=== PATIENT | male | born 1990 | race Caucasian/White ===

== ENCOUNTER 2018-01-27 | Emergency (ER) | END 2018-01-27 18:47 | disposition left against medical advice (07) | DX: R05 Cough (principal); Z53.21 Procedure and treatment not carried out due to patient leaving prior to being seen by health care provider ==

== ENCOUNTER 2018-01-27 22:55 | Emergency (ER) | payer OTHER ==
[2018-01-27 23:40] LABS: Amphetamine Screen,Urine Not Detected (NotDetected); Barbiturate Screen,Urine Not Detected (NotDetected); Benzodiazepines Screen,Urine Not Detected (NotDetected); Cocaine Screen,Urine Not Detected (NotDetected); Methadone Screen, Urine Not Detected (NotDetected); Opiate Screen,Urine Not Detected (NotDetected); Oxycodone Screen, Urine Not Detected (NotDetected); Phencyclidine Screen,Urine Not Detected (NotDetected); Tricyclic Antidepressant,Urine Not Detected (NotDetected); Urn Cannabinoid Scrn Not Detected (NotDetected)
--- NOTE | 2018-01-27 23:56 | ED ---
Psych HPI - General Chief Complaint: Psychiatric Symptoms Stated Complaint: Suicidal Time Seen by Provider: 01/27/18 23:06 Source: patient Mode of arrival: ambulatory - History of Present Illness Initial Comments: This patient is 28-year-old man who presents to be evaluated for some feelings of depression and concerns that he might use heroin again and overdose. The patient states that he had been using narcotics, but has been clean for number weeks now. Over the past few nights he has been having concerns that he might use heroin and might lead to overdosing. MD Complaint: feels depressed -: days(s) Associated Psychiatric Symptoms: depression History of same: No Quality: constant Improves With: none Worsens With: none Context: recent alcohol abuse Associated Symptoms: denies other symptoms Treatments Prior to Arrival: none - Related Data Allergies Allergy/AdvReac Type Severity Reaction Status Date / Time diphenhydramine Allergy Rash/Hives Verified 01/27/18 23:08 [From Benadryl] Penicillins Allergy Anaphylaxis Verified 01/27/18 17:14 Review of Systems ROS Statement: Those systems with pertinent positive or pertinent negative responses have been documented in the HPI. ROS Other: All systems not noted in ROS Statement are negative. Constitutional: Denies: fever Respiratory: Denies: cough, dyspnea Cardiovascular: Denies: chest pain, palpitations Gastrointestinal: Denies: abdominal pain, vomiting, diarrhea Musculoskeletal: Denies: back pain Neurological: Denies: headache, weakness, numbness Psychiatric: Reports: depression. Denies: auditory hallucinations, visual hallucinations, homicidal thoughts, suicidal thoughts Past Medical History Past Medical History: Asthma History of Any Multi-Drug Resistant Organisms: None Reported Past Surgical History: No Surgical Hx Reported Past Psychological History: No Psychological Hx Reported Smoking Status: Current some day smoker Past Alcohol Use History: None Reported Past Drug Use History: None Reported General Exam Limitations: no limitations General appearance: alert, in no apparent distress Head exam: Present: atraumatic, normocephalic Eye exam: Present: normal appearance. Absent: scleral icterus, conjunctival injection Respiratory exam: Present: normal lung sounds bilaterally. Absent: respiratory distress, wheezes, rales, rhonchi, stridor Cardiovascular Exam: Present: regular rate, normal rhythm, normal heart sounds. Absent: systolic murmur, diastolic murmur, rubs, gallop GI/Abdominal exam: Present: soft. Absent: distended, tenderness, guarding, rebound, mass Extremities exam: Present: normal inspection, normal capillary refill. Absent: pedal edema, calf tenderness Back exam: Present: normal inspection. Absent: CVA tenderness (R), CVA tenderness (L) Neurological exam: Present: alert Psychiatric exam: Present: depressed. Absent: agitated, anxious, flat affect, manic, homicidal ideation, suicidal ideation Skin exam: Present: warm, dry, intact, normal color. Absent: rash Course Vital Signs 01/27/18 23:05 Temperature 98.3 F Pulse Rate 88 Respiratory 16 Rate Blood Pressure 105/67 O2 Sat by Pulse 98 Oximetry Medical Decision Making - Lab Data Lab Results 01/27/18 Range/Units 23:25 Urine Opiates Screen Not Detected (NotDetected) Ur Oxycodone Screen Not Detected (NotDetected) Urine Methadone Screen Not Detected (NotDetected) Ur Propoxyphene Screen Not Detected (NotDetected) Ur Barbiturates Screen Not Detected (NotDetected) U Tricyclic Antidepress Not Detected (NotDetected) Ur Phencyclidine Scrn Not Detected (NotDetected) Ur Amphetamines Screen Not Detected (NotDetected) U Methamphetamines Scrn Not Detected (NotDetected) U Benzodiazepines Scrn Not Detected (NotDetected) Urine Cocaine Screen Not Detected (NotDetected) U Marijuana (THC) Screen Not Detected (NotDetected) Disposition Clinical Impression: Adjustment reaction Disposition: HOME SELF-CARE Condition: Good Instructions: Mood Disorders (ED) Is patient prescribed a controlled substance at d/c from ED?: No Referrals: None,Stated [Primary Care Provider] - 1-2 days Jeremy Cloud MD [STAFF PHYSICIAN] - 1-2 days
[2018-01-28 00:48] VITALS: BP 119/79; PULSE 77; RESP 18; TEMP 98
== END 2018-01-28 00:47 | disposition home or self-care (01) ==
LOC: EC 22:55
DX: F43.21 Adjustment disorder with depressed mood (principal); F17.200 Nicotine dependence, unspecified, uncomplicated; Z88.8 Allergy status to other drugs, medicaments and biological substances; Z88.0 Allergy status to penicillin
CPT/HCPCS: 80306; 82075; 99285

== ENCOUNTER 2019-04-12 23:52 | Emergency (ER) | payer OTHER ==
[2019-04-13] MEDS ORDERED: ALBUTEROL NEBULIZED 2.5 MG/3 ML INHALATION STA (00:07)
--- NOTE | 2019-04-13 01:31 | ED ---
URI HPI <Jessica Champagne - Last Filed: 04/13/19 02:01> - General Source: patient Mode of arrival: ambulatory Limitations: no limitations - History of Present Illness MD Complaint: cough, sore throat, nasal congestion -: days(s) Severity: moderate Quality: burning Consistency: constant Improves With: nothing Worsens With: nothing Associated Symptoms: fever, sore throat Treatments Prior to Arrival: none <Tony Sotomayor - Last Filed: 04/14/19 08:07> - General Chief Complaint: Upper Respiratory Infection Stated Complaint: Cough Time Seen by Provider: 04/13/19 00:06 - History of Present Illness Initial Comments: This patient is 29-year-old man who presents to be evaluated him and for sore throat. He also has had a little bit of congestion and cough but states this is not a major component. (Tony Sotomayor) - Related Data Previous Rx's Medication Instructions Recorded Azithromycin [Zithromax] 500 mg PO DAILY 5 Days #5 tab 04/13/19 Allergies Allergy/AdvReac Type Severity Reaction Status Date / Time diphenhydramine Allergy Rash/Hives Verified 04/13/19 00:09 [From Benadryl] Penicillins Allergy Anaphylaxis Verified 04/13/19 00:09 Review of Systems ROS Other: All systems not noted in ROS Statement are negative. <Jessica Champagne - Last Filed: 04/13/19 02:01> ROS Other: All systems not noted in ROS Statement are negative. Constitutional: Reports: fever ENT: Reports: throat pain Respiratory: Reports: cough. Denies: dyspnea, wheezes Cardiovascular: Denies: chest pain, palpitations Gastrointestinal: Denies: abdominal pain, nausea, vomiting Musculoskeletal: Denies: back pain Skin: Denies: rash Neurological: Reports: headache. Denies: weakness <Tony Sotomayor - Last Filed: 04/14/19 08:07> ROS Statement: Those systems with pertinent positive or pertinent negative responses have been documented in the HPI. Past Medical History Past Medical History: Asthma History of Any Multi-Drug Resistant Organisms: None Reported Past Surgical History: No Surgical Hx Reported Past Psychological History: No Psychological Hx Reported Smoking Status: Current every day smoker Past Alcohol Use History: Occasional Past Drug Use History: Marijuana <Tony Sotomayor - Last Filed: 04/14/19 08:07> General Exam Limitations: no limitations General appearance: alert, in no apparent distress Head exam: Present: atraumatic, normocephalic Eye exam: Present: normal appearance. Absent: scleral icterus, conjunctival injection ENT exam: Present: mucous membranes moist, TM's normal bilaterally, normal external ear exam, other (There is some injection of the pharynx). Absent: normal oropharynx Neck exam: Present: normal inspection, full ROM, lymphadenopathy. Absent: tenderness, meningismus Respiratory exam: Present: normal lung sounds bilaterally. Absent: respiratory distress, wheezes, rales, rhonchi, stridor Cardiovascular Exam: Present: regular rate, normal rhythm, normal heart sounds. Absent: systolic murmur, diastolic murmur, rubs, gallop GI/Abdominal exam: Present: soft. Absent: distended, tenderness, guarding, rebound, mass Neurological exam: Present: alert Skin exam: Present: warm, dry, intact, normal color. Absent: rash <Tony Sotomayor - Last Filed: 04/14/19 08:07> Course Vital Signs 04/13/19 04/13/19 04/13/19 00:07 00:26 00:36 Temperature 97.8 F Pulse Rate 145 H 109 H 109 H Respiratory 18 Rate Blood Pressure 95/59 O2 Sat by Pulse 99 Oximetry 04/13/19 02:13 Temperature 98.1 F Pulse Rate 96 Respiratory 14 Rate Blood Pressure 92/69 O2 Sat by Pulse 94 L Oximetry Medical Decision Making - Lab Data Lab Results 04/13/19 Range/Units 00:26 Group A Strep Rapid Positive A (Negative) Disposition Time of Disposition: 02:02 <Jessica Champagne - Last Filed: 04/13/19 02:01> Is patient prescribed a controlled substance at d/c from ED?: No <Tony Sotomayor - Last Filed: 04/14/19 08:07> Clinical Impression: Strep pharyngitis Disposition: HOME SELF-CARE Condition: Fair Instructions (If sedation given, give patient instructions): Strep Throat (ED) Additional Instructions: Take Tylenol Motrin for pain control. Increase fluids. Rest. Follow-up through primary care physician for recheck in 1-2 days. Prescriptions: Azithromycin [Zithromax] 500 mg PO DAILY 5 Days #5 tab Referrals: None,Stated [Primary Care Provider] - 1-2 days
[2019-04-13] MEDS ORDERED: AZITHROMYCIN 500 MG TAB PO STA (02:01)
[2019-04-13 02:14] VITALS: BP 92/69; PULSE 96; RESP 14; TEMP 98.1
== END 2019-04-13 02:14 | disposition home or self-care (01) ==
LOC: EC 23:52
DX: J02.0 Streptococcal pharyngitis (principal); B95.0 Streptococcus, group A, as the cause of diseases classified elsewhere; F17.200 Nicotine dependence, unspecified, uncomplicated; Z88.0 Allergy status to penicillin; Z88.8 Allergy status to other drugs, medicaments and biological substances
CPT/HCPCS: 87430; 94640; 99284

== ENCOUNTER 2019-09-24 05:20 | Emergency (ER) | payer OTHER ==
[2019-09-24 05:34] VITALS: BP 116/74; PULSE 81; RESP 20; TEMP 97
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
== END 2019-09-24 05:49 | disposition home or self-care (01) ==
LOC: EC 05:20
DX: M79.605 Pain in left leg (principal); F17.200 Nicotine dependence, unspecified, uncomplicated; Z88.0 Allergy status to penicillin; Z88.8 Allergy status to other drugs, medicaments and biological substances; V48.7XXA Person on outside of car injured in noncollision transport accident in traffic accident, initial encounter; Y93.89 Activity, other specified; Y92.410 Unspecified street and highway as the place of occurrence of the external cause
CPT/HCPCS: 99284

== ENCOUNTER 2019-10-06 01:08 | Emergency (ER) | payer OTHER ==
[2019-10-06 01:13] VITALS: BP 141/55; PULSE 103; RESP 20; TEMP 98
--- NOTE | 2019-10-06 01:36 | XR ---
EXAMINATION TYPE: XR hand complete LT DATE OF EXAM: 10/06/2019 COMPARISON: NONE HISTORY: Pain. Trauma. TECHNIQUE: 3 views FINDINGS: There is mild flexion at the PIP joint of the little finger. I see no fracture nor dislocat ion. There is possible atrophy of the little finger soft tissues including the musculature. There is 4 mm erosion on the trapezium at the scaphoid trapezium joint. IMPRESSION: Mild flexion at the PIP joint of the little finger could relate to tendon injury. No frac ture seen. No evidence of a foreign body.
--- NOTE | 2019-10-06 02:34 | ED ---
General Adult HPI - General Chief complaint: Wound/Laceration Stated complaint: Lft Hand Injury Time Seen by Provider: 10/06/19 01:16 Source: patient, RN notes reviewed, old records reviewed Mode of arrival: ambulatory Limitations: no limitations - History of Present Illness Initial comments: 29-year-old male patient no pertinent past history of present to ED for evaluation of left hand injury. Patient reports that 3 weeks ago he punched a wall. Reported to have a laceration on the fifth MCP joint. Once injury that's healing well has localized pain in that region. Tetanus was updated last year. Systemic: Pt denies fatigue, fever/chills, rash. Pt denies weakness, night sweats, weight loss. Neuro: Pt denies headache, visual disturbances, syncope or pre-syncope. HEENT: Pt denies ocular discharge or irritation, otalgia, rhinorrhea, pharyngitis or notable lymphadenopathy. Cardiopulmonary: Pt denies chest pain, SOB, heart palpitations, dyspnea on exertion. Abdominal/GI: Pt denies abdominal pain, n/v/d. : Pt denies dysuria, burning w/ urination, frequency/urgency. Denies new onset urinary or bowel incontinence. MSK: Pt denies myalgia, loss of strength or function in extremities. Neuro: Pt denies new onset weakness, paresthesias. - Related Data Previous Rx's Medication Instructions Recorded Azithromycin [Zithromax] 500 mg PO DAILY 5 Days #5 tab 04/13/19 Allergies Allergy/AdvReac Type Severity Reaction Status Date / Time diphenhydramine Allergy Rash/Hives Verified 10/06/19 01:14 [From Benadryl] Penicillins Allergy Anaphylaxis Verified 10/06/19 01:14 Review of Systems ROS Statement: Those systems with pertinent positive or pertinent negative responses have been documented in the HPI. ROS Other: All systems not noted in ROS Statement are negative. Past Medical History Past Medical History: Asthma History of Any Multi-Drug Resistant Organisms: None Reported Past Surgical History: No Surgical Hx Reported Past Psychological History: No Psychological Hx Reported Smoking Status: Current every day smoker Past Alcohol Use History: Occasional Past Drug Use History: Marijuana General Exam - General Exam Comments Initial Comments: Constitutional: NAD, AOX3, Pt has pleasant affect. HEENT: NC/AT, trachea midline, neck supple, no lymphadenopathy. Posterior pharynx non erythematous, without exudates. External ears appear normal, without discharge. Mucous membranes moist. Eyes PERRLA, EOM intact. There is no scleral icterus. No pallor noted. Cardiopulmonary: RRR, no murmurs, rubs or gallops, no JVD noted. Lungs CTAB in anterior and posterior weldon. No peripheral edema. Abdominal exam: Abdomen soft and non-distended. Abdomen non-tender to palpation in all 4 quadrants. Bowel sounds active in LLQ. No hepatosplenomegaly. No ecchymosis Neuro: CN II-XII grossly intact. No nuchal rigidity. No raccon eyes, no phillips sign, no hemotympanum. No cervical spinal tenderness. MSK: 1.5 cm healing laceration fifth MCP joint. Full active range of motion. Neurovascularly intact. Snuffbox tenderness is negative. No cellulitic changes, no fluctuance, no streaking. No posterior calf tenderness bilaterally, homans sign negative bilaterally. Posterior tibialis and radial pulse +2 bilaterally. Sensation intact in upper and lower extremities. Full active ROM in upper and lower extremities, 5/5 stregnth. Limitations: no limitations Course Vital Signs 10/06/19 01:10 Temperature 98 F Pulse Rate 103 H Respiratory 20 Rate Blood Pressure 141/55 O2 Sat by Pulse 100 Oximetry Medical Decision Making - Medical Decision Making 29-year-old male patient no pertinent past history of present to ED for evaluation of left hand injury. Patient reports that 3 weeks ago he punched a wall. Reported to have a laceration on the fifth MCP joint. Once injury that's healing well has localized pain in that region. Tetanus was updated last year. Pt VSS, afebrile. Physical exam displayed: 1.5 cm healing laceration fifth MCP joint. Full active range of motion. Neurovascularly intact. Snuffbox tenderness is negative. No cellulitic changes, no fluctuance, no streaking. Plain film did not display any acute fracture or evidence of foreign body. 4mm erosion on the trapezium at the scaphoid trapezium joint. Findings were explained to patient. Laceration appears to be healing well. Pt will be discharged with outpatient follow up. Case discussed with Dr. Morales. Disposition Clinical Impression: Laceration Disposition: HOME SELF-CARE Condition: Stable Instructions (If sedation given, give patient instructions): Laceration (ED) Additional Instructions: Follow-up with primary care provider. Continue to keep it clean and dry. Return to ER if condition worsens. Is patient prescribed a controlled substance at d/c from ED?: No Referrals: None,Stated [Primary Care Provider] - 1-2 days [facility] [NON-[facility]FF] - 1-2 days
== END 2019-10-06 02:42 | disposition home or self-care (01) ==
LOC: EC 01:08
DX: S61.217D Laceration without foreign body of left little finger without damage to nail, subsequent encounter (principal); M85.842 Other specified disorders of bone density and structure, left hand; F17.200 Nicotine dependence, unspecified, uncomplicated; Z88.0 Allergy status to penicillin; Z88.8 Allergy status to other drugs, medicaments and biological substances; W22.01XD Walked into wall, subsequent encounter
CPT/HCPCS: 99283

== ENCOUNTER 2019-12-25 16:27 | Emergency (ER) | payer OTHER ==
[2019-12-25 16:37] VITALS: BP 129/81; PULSE 104; RESP 18; TEMP 97.8
[2019-12-25] MEDS ORDERED: cefTRIAXone 250 MG VIAL IM STA (16:52)
[2019-12-25] MEDS ORDERED: AZITHROMYCIN 500 MG TAB PO STA (16:52)
[2019-12-25] MEDS ORDERED: metroNIDAZOLE 500 MG TAB PO STA (16:53)
--- NOTE | 2019-12-25 17:06 | ED ---
General Adult HPI - General Chief complaint: Urogenital Stated complaint: STD Test Time Seen by Provider: 12/25/19 16:35 Source: patient, RN notes reviewed, old records reviewed Mode of arrival: ambulatory Limitations: no limitations - History of Present Illness Initial comments: This is a 29-year-old male who presents emergency Department complaining of clear drainage from his penis. Patient states his girlfriend was treated for Trichomonas and he feels as though he might have that sexual transmitted disease. Patient denies any fever chills per patient denies any lesions. Patient denies any lumps or bumps. - Related Data Previous Rx's Medication Instructions Recorded Azithromycin [Zithromax] 500 mg PO DAILY 5 Days #5 tab 04/13/19 Allergies Allergy/AdvReac Type Severity Reaction Status Date / Time diphenhydramine Allergy Rash/Hives Verified 12/25/19 16:36 [From Benadryl] Penicillins Allergy Anaphylaxis Verified 12/25/19 16:36 Review of Systems ROS Statement: Those systems with pertinent positive or pertinent negative responses have been documented in the HPI. ROS Other: All systems not noted in ROS Statement are negative. Past Medical History Past Medical History: Asthma History of Any Multi-Drug Resistant Organisms: None Reported Past Surgical History: No Surgical Hx Reported Past Psychological History: No Psychological Hx Reported Smoking Status: Current every day smoker Past Alcohol Use History: Occasional Past Drug Use History: Marijuana General Exam - General Exam Comments Initial Comments: GENERAL Patient is well-developed and well-nourished. Patient is in no acute distress. EYES Patient's pupils are equal and round. Extraocular motion is intact SKIN Unremarkable NEURO The patient is alert and oriented 3 PYSCH Patient has normal interpersonal interactions. MUSCULOSKELETAL All 4 times and full range of motion. GENITALIA Patient is entirely has no lesions or rashes noted no lymphadenopathy noted no areas of erythema or swelling. No obvious drainage. Limitations: no limitations Course Vital Signs 12/25/19 16:32 Temperature 97.8 F Pulse Rate 104 H Respiratory 18 Rate Blood Pressure 129/81 O2 Sat by Pulse 98 Oximetry Disposition Clinical Impression: STD exposure Disposition: HOME SELF-CARE Condition: Good Instructions (If sedation given, give patient instructions): Sexually Transmitted Diseases (ED) Is patient prescribed a controlled substance at d/c from ED?: No Referrals: None,Stated [Primary Care Provider] - 1-2 days Time of Disposition: 17:09
== END 2019-12-25 17:41 | disposition home or self-care (01) ==
LOC: EC 16:27
DX: Z20.2 Contact with and (suspected) exposure to infections with a predominantly sexual mode of transmission (principal); F17.200 Nicotine dependence, unspecified, uncomplicated; Z88.0 Allergy status to penicillin; Z88.8 Allergy status to other drugs, medicaments and biological substances
CPT/HCPCS: 87491; 87591; 99284; 96372; J0696

== ENCOUNTER 2020-04-14 17:07 | Emergency (ER) | payer OTHER ==
[2020-04-14 17:17] VITALS: BP 128/75; PULSE 94; RESP 18; TEMP 98.2
[2020-04-14] MEDS ORDERED: Acetaminophen-Codeine 300-30mg TAB PO STA (17:27)
[2020-04-14] MEDS ORDERED: ACET/COD 300 MG/30 MG STARTER PACK 6 TAB BTL PO STA (17:27)
[2020-04-14] MEDS ORDERED: traMADol 50 MG STARTER PACK 3 TAB BTL PO STA (17:27)
[2020-04-14] MEDS ORDERED: IBUPROFEN 800 MG TAB PO STA (17:27)
[2020-04-14] MEDS ORDERED: CLINDAMYCIN 150 MG CAP PO STA (17:27)
--- NOTE | 2020-04-14 17:29 | ED ---
ENT HPI - General Chief complaint: Dental/Oral Stated complaint: dental pain Time Seen by Provider: 04/14/20 17:27 Source: patient, RN notes reviewed, old records reviewed Mode of arrival: ambulatory Limitations: no limitations - History of Present Illness Initial comments: This is a 30-year-old male presents today for evaluation of dental pain history of dental fractures left posterior decreased dental pain. Patient has significant pain here in the ER. Patient still complaining of pain. Patient is without fever. Without facial swelling has history of dental fractures he does state that he has follow-up planned in the future MD complaint: tooth pain (Left rear Molar pain) -: hour(s) Location: tooth # ((Molar lower) Severity: moderate Severity scale (1-10): 7 Quality: sharp Consistency: constant Improves with: none Context- Dental: history of dental caries - Related Data Previous Rx's Medication Instructions Recorded Azithromycin [Zithromax] 500 mg PO DAILY 5 Days #5 tab 04/13/19 clindamycin HCL [Cleocin] 300 mg PO Q8HR #30 cap 04/14/20 Allergies Allergy/AdvReac Type Severity Reaction Status Date / Time diphenhydramine Allergy Rash/Hives Verified 04/14/20 17:17 [From Benadryl] Penicillins Allergy Anaphylaxis Verified 04/14/20 17:17 Review of Systems ROS Statement: Those systems with pertinent positive or pertinent negative responses have been documented in the HPI. ROS Other: All systems not noted in ROS Statement are negative. Past Medical History Past Medical History: Asthma History of Any Multi-Drug Resistant Organisms: None Reported Past Surgical History: No Surgical Hx Reported Past Psychological History: No Psychological Hx Reported Smoking Status: Current every day smoker Past Alcohol Use History: None Reported Past Drug Use History: None Reported General Exam Limitations: no limitations General appearance: alert, in no apparent distress Head exam: Present: atraumatic, normocephalic, normal inspection Eye exam: Present: normal appearance, PERRL, EOMI. Absent: scleral icterus, conjunctival injection, periorbital swelling ENT exam: Present: normal exam, mucous membranes moist, other ((Dental fracture, left for molar) Neck exam: Present: normal inspection. Absent: tenderness, meningismus, lymphadenopathy Respiratory exam: Present: normal lung sounds bilaterally. Absent: respiratory distress, wheezes, rales, rhonchi, stridor Cardiovascular Exam: Present: regular rate, normal rhythm, normal heart sounds. Absent: systolic murmur, diastolic murmur, rubs, gallop, clicks GI/Abdominal exam: Present: soft, normal bowel sounds. Absent: distended, tenderness, guarding, rebound, rigid Extremities exam: Present: normal inspection, full ROM, normal capillary refill. Absent: tenderness, pedal edema, joint swelling, calf tenderness Back exam: Present: normal inspection Neurological exam: Present: alert, oriented X3, CN II-XII intact Psychiatric exam: Present: normal affect, normal mood Skin exam: Present: warm, dry, intact, normal color. Absent: rash Course Vital Signs 04/14/20 17:14 Temperature 98.2 F Pulse Rate 94 Respiratory 18 Rate Blood Pressure 128/75 O2 Sat by Pulse 95 Oximetry - Reevaluation(s) Reevaluation #1: Medical record is reviewed Reevaluation #2: Patient has pain control currently Medical Decision Making - Medical Decision Making 30 male to the ED patient complains of tooth pain, given to medication in the ER can be discharged Disposition Clinical Impression: Dental caries, Dental abscess, Toothache Disposition: HOME SELF-CARE Condition: Good Instructions (If sedation given, give patient instructions): Dental Abscess (ED), Toothache (ED) Prescriptions: clindamycin HCL [Cleocin] 300 mg PO Q8HR #30 cap Is patient prescribed a controlled substance at d/c from ED?: No Referrals: Darrel Vargas MD [Primary Care Provider] - 1-2 days
== END 2020-04-14 17:45 | disposition home or self-care (01) ==
LOC: EC 17:07
DX: K04.7 Periapical abscess without sinus (principal); K02.9 Dental caries, unspecified; F17.200 Nicotine dependence, unspecified, uncomplicated; Z88.8 Allergy status to other drugs, medicaments and biological substances; Z88.0 Allergy status to penicillin
CPT/HCPCS: 99283

== ENCOUNTER 2021-05-22 13:11 | Emergency (ER) | payer OTHER ==
[2021-05-22 13:32] VITALS: BP 108/63; PULSE 110; RESP 20
[2021-05-22 13:33] VITALS: TEMP 98.6
--- NOTE | 2021-05-22 15:26 | ED ---
ENT HPI - General Chief complaint: ENT Stated complaint: Sore Throat Time Seen by Provider: 05/22/21 15:02 Source: patient, RN notes reviewed Mode of arrival: ambulatory Limitations: no limitations - History of Present Illness Initial comments: Patient is a 31-year-old male presenting to emergency Department with complaints of feeling like something is stuck in his throat. He states he has been coughing for the last couple days and is concerned for Covid. He feels like there is hard phlegm stuck in his throat. He is in no acute distress, no troub le breathing. No chest pain or short of breath, no nausea or vomiting, no fevers or chills. He has no further complaints. His vitals are stable upon arrival. - Related Data Previous Rx's Medication Instructions Recorded Azithromycin [Zithromax] 500 mg PO DAILY 5 Days #5 tab 04/13/19 clindamycin HCL [Cleocin] 300 mg PO Q8HR #30 cap 04/14/20 Allergies Allergy/AdvReac Type Severity Reaction Status Date / Time diphenhydramine Allergy Rash/Hives Verified 05/22/21 13:33 [From Benadryl] Penicillins Allergy Anaphylaxis Verified 05/22/21 13:33 Review of Systems ROS Statement: Those systems with pertinent positive or pertinent negative responses have been documented in the HPI. ROS Other: All systems not noted in ROS Statement are negative. Past Medical History Past Medical History: Asthma History of Any Multi-Drug Resistant Organisms: None Reported Past Surgical History: No Surgical Hx Reported Past Psychological History: No Psychological Hx Reported Smoking Status: Current every day smoker Past Alcohol Use History: None Reported Past Drug Use History: None Reported General Exam - General Exam Comments Initial Comments: GENERAL: Patient is well-developed and well-nourished. Patient is nontoxic and in no acute distress. HEAD: Atraumatic, normocephalic. EYES: Pupils equal round and reactive to light, extraocular movements intact, sclera anicteric, conjunctiva are normal. Eyelids were unremarkable. ENT: TMs normal, nares patent, oropharynx clear without exudates. Moist mucous membranes. NECK: Normal range of motion, supple without lymphadenopathy or JVD. LUNGS: Unlabored respirations. Breath sounds clear to auscultation bilaterally and equal. No wheezes rales or rhonchi. HEART: Regular rate and rhythm without murmurs, rubs or gallops. MUSCULOSKELETAL: Normal extremities with adequate strength and normal range of motion, no pitting or edema. No clubbing or cyanosis. NEUROLOGICAL: Patient is alert and oriented x 3. SKIN: Warm, Dry, normal turgor, no rashes or lesions noted. Limitations: no limitations Course Vital Signs 05/22/21 05/22/21 13:29 13:31 Temperature 98.6 F Pulse Rate 110 H Respiratory 20 Rate Blood Pressure 108/63 O2 Sat by Pulse 96 Oximetry Medical Decision Making - Medical Decision Making Patient is a 31-year-old male presenting with a feeling that something is stuck in his throat like hard phlegm. He has concerns for Covid, he have mild cough, no fevers. Exam is unremarkable. I did test him for covid, this is negative. I discussed with patient this is most likely viral, postnasal drip. I recom mended [id number] medications. He is agreeable to this and is stable for discharge. - Lab Data Lab Results 05/22/21 Range/Units 15:21 Coronavirus (PCR) Not Detected (Not Detectd) Disposition Clinical Impression: Congestion of nasal sinus Disposition: HOME SELF-CARE Condition: Stable Instructions (If sedation given, give patient instructions): Cold Symptoms (ED) Additional Instructions: Please return to the Emergency Department if symptoms worsen or any other concerns. Recommend [id number] cough medicine such as Mucinex. Is patient prescribed a controlled substance at d/c from ED?: No Referrals: Darrel Vargas MD [Primary Care Provider] - 1-2 days Time of Disposition: 15:26
== END 2021-05-22 15:29 | disposition home or self-care (01) ==
LOC: EC 13:11
DX: R09.81 Nasal congestion (principal); J45.909 Unspecified asthma, uncomplicated; R05.9 Cough, unspecified; F17.200 Nicotine dependence, unspecified, uncomplicated; Z20.822 Contact with and (suspected) exposure to COVID-19
CPT/HCPCS: 87635; 99283

== ENCOUNTER 2021-06-22 20:36 | Emergency (ER) | payer OTHER ==
[2021-06-22 21:12] VITALS: BP 101/68; PULSE 90; RESP 18; TEMP 98
[2021-06-22] MEDS ORDERED: ACET/COD 300 MG/30 MG STARTER PACK 6 TAB BTL PO STA (22:39)
--- NOTE | 2021-06-22 22:40 | ED ---
ENT HPI - General Chief complaint: Dental/Oral Stated complaint: Dental Pain Time Seen by Provider: 06/22/21 22:16 Source: patient, RN notes reviewed Mode of arrival: ambulatory Limitations: no limitations - History of Present Illness Initial comments: 31-year-old male complaining of left lower dental pain. Notes he does have follow-up with his dentist in one week. Notes he needs symptomatic pain control and told them. He notes that Tylenol 3 works well for pain. He denied any other issues or complaints. He was otherwise well-appearing. He denied chest pain shortness of breath headache nausea vomiting diarrhea constipation fever fatigue chills. - Related Data Previous Rx's Medication Instructions Recorded Azithromycin [Zithromax] 500 mg PO DAILY 5 Days #5 tab 04/13/19 clindamycin HCL [Cleocin] 300 mg PO Q8HR #30 cap 04/14/20 Allergies Allergy/AdvReac Type Severity Reaction Status Date / Time diphenhydramine Allergy Rash/Hives Verified 06/22/21 21:12 [From Benadryl] Penicillins Allergy Anaphylaxis Verified 06/22/21 21:12 Review of Systems ROS Statement: Those systems with pertinent positive or pertinent negative responses have been documented in the HPI. ROS Other: All systems not noted in ROS Statement are negative. Past Medical History Past Medical History: Asthma History of Any Multi-Drug Resistant Organisms: None Reported Past Surgical History: No Surgical Hx Reported Past Psychological History: No Psychological Hx Reported Smoking Status: Current every day smoker Past Alcohol Use History: None Reported Past Drug Use History: None Reported General Exam Limitations: no limitations General appearance: alert, in no apparent distress Head exam: Present: atraumatic, normocephalic, normal inspection Eye exam: Present: normal appearance, PERRL, EOMI. Absent: scleral icterus, conjunctival injection, periorbital swelling ENT exam: Present: normal exam, mucous membranes moist Expanded Teeth exam: Present: other (Very poor dentition too numerous to count caries.) Neck exam: Present: normal inspection Respiratory exam: Present: normal lung sounds bilaterally. Absent: respiratory distress, wheezes, rales, rhonchi, stridor Cardiovascular Exam: Present: regular rate, normal rhythm, normal heart sounds. Absent: systolic murmur, diastolic murmur, rubs, gallop, clicks Extremities exam: Present: normal inspection, full ROM, normal capillary refill. Absent: tenderness, pedal edema, joint swelling, calf tenderness Neurological exam: Present: alert, oriented X3 Psychiatric exam: Present: normal affect, normal mood Skin exam: Present: warm, dry, intact, normal color. Absent: rash Course Vital Signs 06/22/21 21:10 Temperature 98 F Pulse Rate 90 Respiratory 18 Rate Blood Pressure 101/68 O2 Sat by Pulse 100 Oximetry Medical Decision Making - Medical Decision Making 31-year-old male complaining of left lower dental pain. Tylenol 3 starter pack ordered. Patient instructed he needs to follow-up with his dentist as soon as possible to get proper treatment. Case discussed with Dr. Sotomayor, patient can discharge home. Disposition Clinical Impression: Pain, dental Disposition: HOME SELF-CARE Condition: Stable Instructions (If sedation given, give patient instructions): Toothache (ED) Additional Instructions: Please return to the Emergency Department if symptoms worsen or any other concerns. Follow-up with primary care 1-2 days. Follow-up with this decision as possible. Take Tylenol 3 as prescribed. Is patient prescribed a controlled substance at d/c from ED?: No Referrals: Darrel Vargas MD [Primary Care Provider] - 1-2 days Time of Disposition: 22:40
== END 2021-06-22 22:58 | disposition home or self-care (01) ==
LOC: EC 20:36
DX: K08.89 Other specified disorders of teeth and supporting structures (principal); J45.909 Unspecified asthma, uncomplicated; F17.200 Nicotine dependence, unspecified, uncomplicated; Z88.0 Allergy status to penicillin; Z88.1 Allergy status to other antibiotic agents
CPT/HCPCS: 99282

== ENCOUNTER 2021-07-10 23:41 | Emergency (ER) | payer OTHER ==
[2021-07-11 02:14] VITALS: BP 97/57; PULSE 110; RESP 22; TEMP 98.1
== END 2021-07-11 00:02 ==
LOC: EC 23:41
DX: Z53.21 Procedure and treatment not carried out due to patient leaving prior to being seen by health care provider (principal)
CPT/HCPCS: 99499

== ENCOUNTER 2021-07-15 19:05 | Emergency (ER) | payer OTHER ==
[2021-07-15 20:36] VITALS: BP 135/76; PULSE 83; RESP 20; TEMP 98
[2021-07-15] MEDS ORDERED: MORPHINE SULFATE 4 MG/ML SYRINGE IVP STA (23:23)
[2021-07-15] MEDS ORDERED: ONDANSETRON 4 MG/2 ML VIAL IVP STA (23:23)
[2021-07-15 23:51] LABS: Appearance,Urine Clear (Clear); Bilirubin,Urine Negative (Negative); Blood,Urine Negative (Negative); Color,Urine Yellow; Glucose,Urine (UA) Negative (Negative); Ketones,Urine Negative (Negative); Leukocyte Esterase,Urine Negative (Negative); Nitrite,Urine Negative (Negative); PH, Urine 6.5 (5.0-8.0); Protein,Urine Negative (Negative); Specific Gravity,Urine 1.016 (1.001-1.035)
[2021-07-16 00:02] LABS: Basophils # (A) 0.1 k/uL (0-0.2); Basophils % (A) 1 %; Eosinophils # (A) 0.2 k/uL (0-0.7); Eosinophils % (A) 2 %; HCT 46.3 % (39.0-53.0); HGB 15.3 gm/dL (13.0-17.5); Lymphocytes # (A) 1.7 k/uL (1.0-4.8); Lymphocytes % (A) 23 %; MCH 30.4 pg (25.0-35.0); Mean Platelet Volume 7.3; Monocytes # (A) 0.3 k/uL (0-1.0); Monocytes % (A) 4 %; Neutrophils # (A) 4.9 k/uL (1.3-7.7); Neutrophils % (A) 68 %; Platelet Count 369 k/uL (150-450); RBC 5.03 m/uL (4.30-5.90); RDW 13.3 % (11.5-15.5); WBC 7.3 k/uL (3.8-10.6)
[2021-07-16 00:06] LABS: ALT 26 U/L (4-49); AST 60 U/L (17-59); African American GFR (CKD) >90 (>60 ml/min/1.73 sqM); Albumin 4.3 g/dL (3.5-5.0); Alkaline Phosphatase 120 U/L (38-126); Anion Gap 11 mmol/L; Blood Urea Nitrogen 11 mg/dL (9-20); Calcium 9.3 mg/dL (8.4-10.2); Carbon Dioxide 30 mmol/L (22-30); Chloride 100 mmol/L (98-107); Glucose 88 mg/dL (74-99); Non-African American GFR(CKD) >90 (>60 ml/min/1.73 sqM); Partial Thromboplastin Time 25.5 sec (22.0-30.0); Potassium 4.2 mmol/L (3.5-5.1); Prothrombin Time 10.5 sec (9.0-12.0); Sodium 141 mmol/L (137-145); Total Bilirubin 0.4 mg/dL (0.2-1.3)
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
--- NOTE | 2021-07-16 00:58 | XR ---
EXAMINATION TYPE: XR tibia fibula bilateral DATE OF EXAM: 07/15/2021 COMPARISON: NONE HISTORY: Pain TECHNIQUE: 5 views FINDINGS: I see no fracture nor dislocation. Knee joint and ankle joint appear intact. There is no pa thologic calcifications. Soft tissues appear normal. IMPRESSION: Negative bilateral tibia and fibula exam. No fracture.
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
[2021-07-16] MEDS ORDERED: ACET/COD 300 MG/30 MG STARTER PACK 6 TAB BTL PO STA (01:26)
== END 2021-07-16 02:39 | disposition home or self-care (01) ==
LOC: EC 19:05
DX: M79.661 Pain in right lower leg (principal); M79.662 Pain in left lower leg; R10.84 Generalized abdominal pain; J45.909 Unspecified asthma, uncomplicated; F17.200 Nicotine dependence, unspecified, uncomplicated; Z88.0 Allergy status to penicillin; Z88.1 Allergy status to other antibiotic agents
CPT/HCPCS: 99284; 96374; 96375; 36415; 80053; 85025; 85610; 85730; 81003; 73630; 73590; 71260; 74177; J2270; J2405; Q9967

== ENCOUNTER 2021-11-17 03:24 | Emergency (ER) | payer OTHER ==
[2021-11-17 03:39] VITALS: TEMP 98
--- NOTE | 2021-11-17 04:12 | ED ---
URI HPI - General Chief Complaint: Upper Respiratory Infection Stated Complaint: URI,dizziness Time Seen by Provider: 11/17/21 03:58 Source: patient Mode of arrival: ambulatory - History of Present Illness Initial Comments: Patient is 31-year-old man who is here to be evaluate for upper respiratory symptoms. The patient states that his niece had similar symptoms. Now he has h ad approximately 3 days of congestion and a little bit of cough and rhinorrhea. MD Complaint: sore throat, rhinorrhea Onset/Timin -: days(s) Consistency: constant Improves With: nothing Worsens With: nothing Context: sick contacts Treatments Prior to Arrival: none - Related Data Home Medications Medication Instructions Recorded Confirmed No Known Home Medications 07/15/21 07/15/21 Allergies Allergy/AdvReac Type Severity Reaction Status Date / Time diphenhydramine Allergy Rash/Hives Verified 11/17/21 03:39 [From Benadryl] Penicillins Allergy Anaphylaxis Verified 11/17/21 03:39 Review of Systems ROS Statement: Those systems with pertinent positive or pertinent negative responses have been documented in the HPI. ROS Other: All systems not noted in ROS Statement are negative. Constitutional: Denies: fever, chills ENT: Reports: congestion Respiratory: Reports: cough. Denies: dyspnea, wheezes Cardiovascular: Denies: chest pain Gastrointestinal: Denies: abdominal pain, vomiting Skin: Denies: rash Neurological: Denies: headache Past Medical History Past Medical History: Asthma History of Any Multi-Drug Resistant Organisms: None Reported Past Surgical History: No Surgical Hx Reported Past Psychological History: No Psychological Hx Reported Smoking Status: Current every day smoker Past Alcohol Use History: None Reported Past Drug Use History: None Reported General Exam General appearance: alert, in no apparent distress Head exam: Present: atraumatic, normocephalic Eye exam: Present: normal appearance ENT exam: Present: normal oropharynx Neck exam: Present: normal inspection, full ROM. Absent: tenderness, meningismus, lymphadenopathy Respiratory exam: Present: normal lung sounds bilaterally. Absent: respiratory distress, wheezes, rales, rhonchi, stridor Cardiovascular Exam: Present: regular rate, normal rhythm, normal heart sounds. Absent: systolic murmur, diastolic murmur, rubs, gallop GI/Abdominal exam: Present: soft. Absent: distended, tenderness, guarding, rebound, rigid Neurological exam: Present: alert Skin exam: Present: warm, dry, intact, normal color. Absent: rash Course Vital Signs 11/17/21 03:37 Temperature 98 F Pulse Rate 99 Respiratory 19 Rate Blood Pressure 111/71 O2 Sat by Pulse 97 Oximetry Disposition Clinical Impression: Common cold Disposition: HOME SELF-CARE Condition: Good Instructions (If sedation given, give patient instructions): Upper Respiratory Infection (ED) Is patient prescribed a controlled substance at d/c from ED?: No Referrals: Darrel Vargas MD [Primary Care Provider] - 1-2 days
[2021-11-17 05:41] VITALS: BP 120/62; PULSE 89; RESP 18
== END 2021-11-17 06:42 | disposition home or self-care (01) ==
LOC: EC 03:24
DX: J00 Acute nasopharyngitis [common cold] (principal); J45.909 Unspecified asthma, uncomplicated; F17.200 Nicotine dependence, unspecified, uncomplicated; Z88.0 Allergy status to penicillin; Z88.1 Allergy status to other antibiotic agents; Z20.822 Contact with and (suspected) exposure to COVID-19
CPT/HCPCS: 87636; 99283